=== PATIENT | male | born 1975 | race Asian ===

== ENCOUNTER 2018-12-08 23:19 | Inpatient (IN) | payer MEDICARE, MEDICAID ==
[~2018-12-08] VITALS: Ht 172.7 cm; Wt 106.0 kg
--- NOTE | 2018-12-08 23:40 | NUR ---
PB BIB FLIGHT FROM [facility]. PT IS A DIALYSIS PATIENT AND C/O HIS DIALYSIS CATHETER IS CLOGGED "I PULLED A WORM OUT OF IT." PT REPORTS DIALYSIS CANCLED ON HIM TODAY BECAUSE THEY WERE UNABLE TO USE HIS CATHETER. PT SHOWED A POTASSIUM OF 6.5. PT WAS GIVEN DEXTROSE, INSULIN AND IV CALCIUM GLUCONATE
--- NOTE | 2018-12-08 23:57 | NUR ---
PT RESTING IN ROOM. SPECIALIST FIELD ENGINEER ON. NSR NOTED. WILL CONTINUE TO MONITOR.
--- NOTE | 2018-12-09 00:08 | NUR ---
LAB IN ROOM
[2018-12-09 00:26] LABS: ANION GAP 9 mmol/L (5-15); CALCIUM 7.3 mg/dL (8.5-10.1); CHLORIDE 100 mmol/L (98-107); CREATININE 8.93 mg/dL (0.7-1.3)
--- NOTE | 2018-12-09 01:10 | NUR ---
REPORT FROM [facility] ASSUMED CARE OF PT
--- NOTE | 2018-12-09 01:12 | NUR ---
REPORT GIVEN TO CANDICE AGUILAR
--- NOTE | 2018-12-09 01:28 | NUR ---
REPORT TO LEELEE PT TO ROOM WITH TECH
[2018-12-09 02:03] VITALS: BP 151/90
[2018-12-09] MEDS ORDERED: ONDANSETRON 2MG/ML, 2ML IVPush PRN (04:30)
[2018-12-09] MEDS ORDERED: hydrALAzine 20 MG/ML, 1ML IVPush PRN (04:30)
[2018-12-09] MEDS ORDERED: POLYETHYLENE GLYCOL 17 GM PACKET PO PRN (04:30)
[2018-12-09] MEDS ORDERED: ACETAMINOPHEN 325 MG TABLET PO PRN (04:30)
[2018-12-09 06:09] LABS: BASOPHILS # (AUTO) 0.05 x10^3/uL (0-0.1); BASOPHILS % (AUTO) 1 % (0-1); EOSINOPHILS # (AUTO) 0.11 x10^3/uL (0-0.4); EOSINOPHILS % (AUTO) 2 % (1-7); LYMPHOCYTES % (AUTO) 12 % (22-44); MD NO; MEAN CORPUSCULAR HEMOGLOBIN 30.6 pg (27.5-34.5); MEAN CORPUSCULAR HGB CONC 33.6 g/dL (33.2-36.2); MEAN CORPUSCULAR VOLUME 91.2 fL (81-97); MEAN PLATELET VOLUME 6.9 fL (7.4-10.4); MONOCYTES # (AUTO) 0.65 x10^3/uL (0.2-0.8); MONOCYTES % (AUTO) 12 % (2-9); NEUTROPHILS # (AUTO) 4.18 x10^3/uL (1.8-6.8); NEUTROPHILS % (AUTO) 73 % (42-75); PLATELET COUNT 406 x10^3/uL (130-400); RED BLOOD COUNT 3.14 x10^6/uL (4.38-5.82); RED CELL DISTRIBUTION WIDTH 16.5 % (9.4-14.8)
[2018-12-09 06:20] LABS: ALANINE AMINOTRANSFERASE 6 U/L (12-78); ANION GAP 11 mmol/L (5-15); CALCIUM 7.5 mg/dL (8.5-10.1); CHLORIDE 101 mmol/L (98-107); CREATININE 8.88 mg/dL (0.7-1.3)
[2018-12-09 06:23] LABS: ALKALINE PHOSPHATASE 117 U/L (45-117); BILIRUBIN,TOTAL 0.6 mg/dL (0.2-1.0)
[2018-12-09] MEDS: INSULIN LISPRO 100 UNITS/ML, PEN SQ-INSULIN SCH ×4 (07:00→21:00)
[2018-12-09 07:07] VITALS: BP 124/83
[2018-12-09] MEDS ORDERED: DEXTROSE 50%, 50ML SYRINGE ONE (07:43)
[2018-12-09] MEDS: DEXTROSE 50%, 50ML SYRINGE IVPush PRN ×2 (07:53→08:37)
[2018-12-09] MEDS ORDERED: GLUCAGON 1 MG IM PRN (08:00)
[2018-12-09] MEDS ORDERED: DEXTROSE 4 GM TAB.CHEW PO PRN (08:00)
[2018-12-09] MEDS: SODIUM CHLORIDE FLUSH 10ML SYR IVF SCH ×4 (09:00→20:43)
[2018-12-09] MEDS ORDERED: DARBEPOETIN 60 MCG/ML SQ SCH (11:00)
[2018-12-09 11:53] LABS: MICROSCOPIC INDICATED
[2018-12-09 12:00] LABS: RED BLOOD COUNT 3.53 x10^6/uL (4.38-5.82)
[2018-12-09 12:07] LABS: CALCIUM 8.1 mg/dL (8.5-10.1)
[2018-12-09 12:15] LABS: ABSOLUTE RETICS # 0.047 x10^6/uL (0.5-1.5); RETICULOCYTE COUNT % 1.31 % (0.5-1.5)
[2018-12-09 12:27] VITALS: BP 142/88
[2018-12-09 12:30] LABS: CREATININE,URINE RANDOM 67.3 mg/dL
[2018-12-09] MEDS ORDERED: FENTANYL PF 100 MCG/2ML ONE ×2 (14:48)
[2018-12-09] MEDS ORDERED: MIDAZOLAM 1 MG/ML, 5ML ONE ×2 (14:48→14:49)
[2018-12-09] MEDS ORDERED: FLUMAZENIL 0.1 MG/1 ML, 5ML ONE (14:49)
[2018-12-09] MEDS ORDERED: NALOXONE 1 MG/ML, 2ML ONE (14:49)
[2018-12-09] MEDS ORDERED: LIDOCAINE-MPF 1%, 5ML ONE (15:22)
[2018-12-09] MEDS ORDERED: CEFAZOLIN PMX 1GM/50ML ONE (15:22)
[2018-12-09 19:52] VITALS: BP 143/93
[2018-12-10 01:22] VITALS: BP 122/78
[2018-12-10 05:56] LABS: BASOPHILS # (AUTO) 0.05 x10^3/uL (0-0.1); BASOPHILS % (AUTO) 1 % (0-1); EOSINOPHILS # (AUTO) 0.13 x10^3/uL (0-0.4); EOSINOPHILS % (AUTO) 3 % (1-7); LYMPHOCYTES # (AUTO) 0.67 x10^3/uL (1-3.4); LYMPHOCYTES % (AUTO) 14 % (22-44); MD NO; MEAN CORPUSCULAR HEMOGLOBIN 30.8 pg (27.5-34.5); MEAN CORPUSCULAR HGB CONC 33.6 g/dL (33.2-36.2); MEAN CORPUSCULAR VOLUME 91.7 fL (81-97); MEAN PLATELET VOLUME 6.9 fL (7.4-10.4); MONOCYTES # (AUTO) 0.47 x10^3/uL (0.2-0.8); MONOCYTES % (AUTO) 10 % (2-9); NEUTROPHILS # (AUTO) 3.58 x10^3/uL (1.8-6.8); NEUTROPHILS % (AUTO) 73 % (42-75); PLATELET COUNT 366 x10^3/uL (130-400); RED BLOOD COUNT 3.09 x10^6/uL (4.38-5.82); RED CELL DISTRIBUTION WIDTH 16.3 % (9.4-14.8)
[2018-12-10 05:58] LABS: ANION GAP 9 mmol/L (5-15); CALCIUM 7.3 mg/dL (8.5-10.1); CHLORIDE 101 mmol/L (98-107); CREATININE 7.09 mg/dL (0.7-1.3)
[2018-12-10 05:59] LABS: ALANINE AMINOTRANSFERASE < 6 U/L (12-78)
[2018-12-10 06:00] LABS: ALKALINE PHOSPHATASE 109 U/L (45-117); BILIRUBIN,TOTAL 0.6 mg/dL (0.2-1.0); TOTAL PROTEIN 7.1 g/dL (6.4-8.2)
[2018-12-10 06:46] VITALS: BP 117/78
[2018-12-10] MEDS: INSULIN LISPRO 100 UNITS/ML, PEN SQ-INSULIN SCH ×4 (07:00→21:45)
[2018-12-10] MEDS: SODIUM CHLORIDE FLUSH 10ML SYR IVF SCH ×3 (07:55→21:14)
[2018-12-10] MEDS ORDERED: ERGOCALCIFEROL 50,000 UNIT CAPSULE PO SCH (11:30)
[2018-12-10] MEDS: SEVELAMER HCL 800MG TABLET PO SCH ×2 (12:37→17:00)
[2018-12-10] MEDS: CALCITRIOL 0.25 MCG CAPSULE PO SCH (12:38)
[2018-12-10 13:12] VITALS: BP 106/71
[2018-12-10 21:32] VITALS: BP 134/85
[2018-12-10] MEDS: IRON SUCROSE COMPLEX 100MG/5ML IV SCH (21:44)
[2018-12-11 01:56] VITALS: BP 135/89
[2018-12-11 05:43] LABS: BASOPHILS # (AUTO) 0.05 x10^3/uL (0-0.1); BASOPHILS % (AUTO) 1 % (0-1); EOSINOPHILS # (AUTO) 0.07 x10^3/uL (0-0.4); EOSINOPHILS % (AUTO) 2 % (1-7); LYMPHOCYTES # (AUTO) 0.92 x10^3/uL (1-3.4); LYMPHOCYTES % (AUTO) 19 % (22-44); MD NO; MEAN CORPUSCULAR HGB CONC 32.7 g/dL (33.2-36.2); MEAN CORPUSCULAR VOLUME 91.8 fL (81-97); MEAN PLATELET VOLUME 6.7 fL (7.4-10.4); MONOCYTES # (AUTO) 0.62 x10^3/uL (0.2-0.8); MONOCYTES % (AUTO) 13 % (2-9); NEUTROPHILS # (AUTO) 3.17 x10^3/uL (1.8-6.8); NEUTROPHILS % (AUTO) 66 % (42-75); PLATELET COUNT 384 x10^3/uL (130-400); RED BLOOD COUNT 3.09 x10^6/uL (4.38-5.82); RED CELL DISTRIBUTION WIDTH 16.5 % (9.4-14.8)
[2018-12-11 05:47] LABS: ALBUMIN 2.1 g/dL (3.4-5.0); ANION GAP 7 mmol/L (5-15); CALCIUM 7.6 mg/dL (8.5-10.1); CHLORIDE 101 mmol/L (98-107)
[2018-12-11 05:48] LABS: CREATININE 5.92 mg/dL (0.7-1.3)
[2018-12-11] MEDS: INSULIN LISPRO 100 UNITS/ML, PEN SQ-INSULIN SCH ×4 (07:00→20:42)
[2018-12-11 07:23] VITALS: BP 128/81
[2018-12-11] MEDS: SEVELAMER CARBONATE 800MG TAB PO SCH ×3 (08:30→17:16)
[2018-12-11] MEDS: IRON SUCROSE COMPLEX 100MG/5ML IV SCH (08:32)
[2018-12-11] MEDS: SODIUM CHLORIDE FLUSH 10ML SYR IVF SCH ×2 (09:00→23:00)
[2018-12-11] MEDS: CALCITRIOL 0.25 MCG CAPSULE PO SCH (12:31)
[2018-12-11 14:29] VITALS: BP 129/81
[2018-12-11 23:01] VITALS: BP 134/86
[2018-12-12 02:37] VITALS: BP 125/76
[2018-12-12 05:39] LABS: BASOPHILS # (AUTO) 0.04 x10^3/uL (0-0.1); BASOPHILS % (AUTO) 1 % (0-1); EOSINOPHILS # (AUTO) 0.17 x10^3/uL (0-0.4); EOSINOPHILS % (AUTO) 3 % (1-7); LYMPHOCYTES % (AUTO) 16 % (22-44); MD NO; MEAN CORPUSCULAR HEMOGLOBIN 30.6 pg (27.5-34.5); MEAN CORPUSCULAR VOLUME 92.7 fL (81-97); MEAN PLATELET VOLUME 6.8 fL (7.4-10.4); MONOCYTES # (AUTO) 0.71 x10^3/uL (0.2-0.8); MONOCYTES % (AUTO) 13 % (2-9); NEUTROPHILS # (AUTO) 3.82 x10^3/uL (1.8-6.8); NEUTROPHILS % (AUTO) 68 % (42-75); PLATELET COUNT 337 x10^3/uL (130-400); RED BLOOD COUNT 3.37 x10^6/uL (4.38-5.82); RED CELL DISTRIBUTION WIDTH 17.2 % (9.4-14.8)
[2018-12-12 05:42] LABS: ALBUMIN 2.1 g/dL (3.4-5.0); ANION GAP 7 mmol/L (5-15); CALCIUM 7.7 mg/dL (8.5-10.1); CHLORIDE 102 mmol/L (98-107); CREATININE 5.46 mg/dL (0.7-1.3)
[2018-12-12 06:50] VITALS: BP 142/88
[2018-12-12] MEDS: INSULIN LISPRO 100 UNITS/ML, PEN SQ-INSULIN SCH (07:00)
[2018-12-12] MEDS: CALCITRIOL 0.25 MCG CAPSULE PO SCH (08:42)
[2018-12-12] MEDS: SEVELAMER CARBONATE 800MG TAB PO SCH (08:42)
[2018-12-12] MEDS: IRON SUCROSE COMPLEX 100MG/5ML IV SCH (08:43)
[2018-12-12] MEDS: SODIUM CHLORIDE FLUSH 10ML SYR IVF SCH (08:43)
[2018-12-12] MEDS ORDERED: CALC0.25 PO (10:38)
[2018-12-12] MEDS ORDERED: SEVE800T8 PO (10:38)
[2018-12-12] MEDS ORDERED: ERGO500017 PO (10:38)
== END 2018-12-12 11:46 | disposition home or self-care (01) | DRG 314 ==
LOC: ED 12-09 00:59 → EDIP 12-09 01:01 → 4WST 12-09 01:52
PROVIDERS: ADMIT Hospitalist; ATTEND Hospitalist
PROC: 0J2TXYZ Change Other Device in Trunk Subcutaneous Tissue and Fascia, External Approach (ICD-10-PCS; principal; 2018-12-09)
PROC: 5A1D70Z Performance of Urinary Filtration, Intermittent, Less than 6 Hours Per Day (ICD-10-PCS; 2018-12-09)
PROC: 5A1D70Z Performance of Urinary Filtration, Intermittent, Less than 6 Hours Per Day (ICD-10-PCS; 2018-12-10)
PROC: 5A1D70Z Performance of Urinary Filtration, Intermittent, Less than 6 Hours Per Day (ICD-10-PCS; 2018-12-11)
PROC: 5A1D70Z Performance of Urinary Filtration, Intermittent, Less than 6 Hours Per Day (ICD-10-PCS; 2018-12-12)
DX: T82.818A Embolism due to vascular prosthetic devices, implants and grafts, initial encounter (principal); N18.6 End stage renal disease; I12.0 Hypertensive chronic kidney disease with stage 5 chronic kidney disease or end stage renal disease; E87.2 Acidosis; E11.22 Type 2 diabetes mellitus with diabetic chronic kidney disease; Y83.8 Other surgical procedures as the cause of abnormal reaction of the patient, or of later complication, without mention of misadventure at the time of the procedure; E87.5 Hyperkalemia; N25.0 Renal osteodystrophy; F22 Delusional disorders; D63.8 Anemia in other chronic diseases classified elsewhere; E87.70 Fluid overload, unspecified; Y92.89 Other specified places as the place of occurrence of the external cause; Z99.2 Dependence on renal dialysis; Z91.19 Patient's noncompliance with other medical treatment and regimen
CPT/HCPCS: 36415; 36581; 75984; 80048; 80053; 80069; 81001; 82306; 82310; 82436; 82570; 82728; 82962; 83540; 83550; 83735; 83970; 84100; 84133; 84156; 84300; 84550; 85025; 85045; 86705; 86706; 87340; 93005; 99156; 99157; 99285; G0378; J0690; J0881; J1756; J2250; J3010; C1750; C1769; J1642; J1815; J2310